=== PATIENT | male | born 1955 | race Caucasian/White ===

== ENCOUNTER → 2018-06-22 | Outpatient (CLI) | payer OTHER ==
--- NOTE | 2018-06-22 09:06 | MR ---
EXAMINATION TYPE: MR brain wo con DATE OF EXAM: 06/22/2018 COMPARISON: CT brain November 26, 2013 HISTORY: Essential tremor / Family hx brain tumor per order. Rt hand and leg shaking per patient. TECHNIQUE: Multiplanar, multisequence imaging of the brain and brainstem is performed without IV cont rast. FINDINGS: Diffusion weighted images demonstrate no evidence of a recent infarct or other diffusion abnormality. There is no worrisome extra-axial fluid collection. There is mild ventricular and sulcal prominence. There is occasional T2 hyperintense focus scattered throughout the white matter bilaterally. Roughly 5-10 scattered small lesions are seen. For reference there are 3-4 tiny left occipital lobe lesions n oted axial image 18. Focus of low intensity and blooming right temporal region axial image 11 on FLAI R sequence does not reproduce on T2-weighted images is felt Artifactual. Midline structures demonstrate normal morphology. The craniocervical junction appears within normal limits. Normal vascular flow voids are present. The visualized sinuses are clear and the globes are i ntact. IMPRESSION: Mild generalized atrophy and minimal nonspecific white matter changes presumed on the bas is of product of chronic small vessel ischemic change.
== END | disposition home or self-care (01) ==
LOC: RADMRIMAIN 08:11
PROVIDERS: ATTEND Psychiatry & Neurology Neurology
DX: G31.9 Degenerative disease of nervous system, unspecified (principal); R90.82 White matter disease, unspecified
CPT/HCPCS: 70551

== ENCOUNTER → 2018-10-01 | Outpatient (CLI) | payer OTHER ==
[2018-10-01 10:37] LABS: HGB 14.7 gm/dL (13.0-17.5); MCH 29.5 pg (25.0-35.0); MCHC 33.3 g/dL (31.0-37.0); MCV 88.6 fL (80.0-100.0); Mean Platelet Volume 6.9; Platelet Count 280 k/uL (150-450); RBC 4.97 m/uL (4.30-5.90); RDW 14.6 % (11.5-15.5); WBC 4.5 k/uL (3.8-10.6)
[2018-10-01 16:53] LABS: African American GFR (CKD) 117.2 (60.0-200.0); Albumin 4.4 g/dL (3.80-4.90); Albumin/Globulin Ratio 2.44 (1.60-3.17); Anion Gap 6.1 mmol/L (4.00-12.00); BUN/Creat Ratio 21.43 Ratio (12.00-20.00); Calcium 9.3 mg/dL (8.7-10.3); Carbon Dioxide 30.9 mmol/L (21.6-31.8); Globulin 1.8 g/dL (1.6-3.3); LDL Cholesterol,Calculated 100.8 mg/dL (0.0-131.0); Potassium 4.3 mmol/L (3.5-5.5); Total Bilirubin 1.5 mg/dL (0.2-1.2); Total Protein 6.2 g/dL (6.2-8.2); VLDL Calculation 20.2 mg/dL (5.00-40.00)
== END | disposition home or self-care (01) ==
LOC: LABWHC1 09:06
PROVIDERS: ATTEND Internal Medicine
DX: E87.8 Other disorders of electrolyte and fluid balance, not elsewhere classified (principal); E78.5 Hyperlipidemia, unspecified; D64.9 Anemia, unspecified; Z12.5 Encounter for screening for malignant neoplasm of prostate
CPT/HCPCS: 80061; 80053; 85027; 36415; G0103

== ENCOUNTER → 2022-01-10 | Outpatient (CLI) | payer OTHER ==
--- NOTE | 2022-01-10 15:45 | US ---
EXAMINATION TYPE: US carotid duplex BILAT DATE OF EXAM: 01/10/2022 COMPARISON: NONE CLINICAL HISTORY: [id number] CAROTID STENOSIS BILATERAL. Carotid stenosis per order. TECHNIQUE: Carotid duplex ultrasound examination. Indirect Doppler criteria was utilized. FINDINGS: EXAM MEASUREMENTS: RIGHT: Peak Systolic Velocity (PSV) cm/sec ----- Right CCA: 122.9 ----- Right ICA: 97.4 ----- Right ECA: 118.2 ICA/CCA ratio: 0.8 RIGHT: End Diastole cm/sec ----- Right CCA: 31.4 ----- Right ICA: 29.2 ----- Right ECA: 17.2 LEFT: Peak Systolic Velocity (PSV) cm/sec ----- Left CCA: 91.9 ----- Left ICA: 119.8 ----- Left ECA: 105.6 ICA/CCA ratio: 1.3 LEFT: End Diastole cm/sec ----- Left CCA: 25.9 ----- Left ICA: 43.5 ----- Left ECA: 18.9 VERTEBRALS (direction of flow): Right Vertebral: Antegrade Left Vertebral: Antegrade Rhythm: Normal DIRECTOR OF CONSERVATION NOTES: Elevated velocity within left prox CCA. Plaque seen within bilateral bulbs. IMPRESSION: Less than 50% stenosis of the bilateral carotid bifurcations. Criteria for Assigning % of Stenosis / Diameter reduction (Estimation based on the indirect measurements of the internal carotid artery velocities (ICA PSV). 1. Normal (no stenosis)=ICA PSV < 125 cm/s: ratio < 2.0: ICA EDV<40 cm/s. 2. Less than 50% stenosis=ICA PSV < 125 cm/s: ratio < 2.0: ICA EDV<40 cm/s. 3. 50 to 69% stenosis=ICA PSV of 125 to 230 cm/s: ration 2.0 ? 4.0: ICA EDV 40-100 cm/s. 4. Greater than 70% stenosis to near occlusion= ICA PSV > 230 cm/s: ratio > 4.0: ICA EDV > 100 cm/s. 5. Near occlusion= ICA PSV velocities may be low or undetectable: variable ratio and ICA EDV. 6. Total occlusion=unable to detect flow.
--- NOTE | 2022-01-11 09:54 | CA ---
Transthoracic Echo Report Name: Eladio Shelby Age: 66 Gender: M : 1955 Exam Date: 01/10/2022 14:22 Exam Location: [facility] Ht (in): 72 Wt (lb): 195 Ordering Physician: Jorge A River MD Attending/Referring Phys: Dogger Kamla Amor RDCS Procedure CPT: Indications: I65.23 OCCLUSION AND STENOSIS OF BILATERAL CAROTID Cardiac Hx: Technical Quality: Contrast 1: Total Dose (mL): Contrast 2: Total Dose (mL): MEASUREMENTS (Male / Female) Normal Values 2D ECHO LV Diastolic Diameter PLAX 5.2 cm 4.2 - 5.9 / 3.9 - 5.3 cm LV Systolic Diameter PLAX 3.7 cm IVS Diastolic Thickness 1.2 cm 0.6 - 1.0 / 0.6 - 0.9 cm LVPW Diastolic Thickness 1.3 cm 0.6 - 1.0 / 0.6 - 0.9 cm LV Relative Wall Thickness 0.5 RV Internal Dim ED PLAX 3.6 cm LVOT Diameter 2.3 cm LA Systolic Diameter LX 4.2 cm 3.0 - 4.0 / 2.7 - 3.8 cm LV Diastolic Volume MOD BP 96.2 cm??? 67 - 155 / 56 - 104 cm??? LV Systolic Volume MOD BP 20.7 cm??? 22 - 58 / 19 - 49 cm??? LV Ejection Fraction MOD BP 78.5 % >= 55 % LV Diastolic Volume MOD 4C 103.7 cm??? LV Systolic Volume MOD 4C 31.2 cm??? LV Ejection Fraction MOD 4C 69.9 % LV Diastolic Length 4C 8.8 cm LV Systolic Length 4C 6.8 cm LV Diastolic Volume MOD 2C 89.5 cm??? LV Systolic Volume MOD 2C 2.3 cm??? LV Ejection Fraction MOD 2C 97.4 % LV Diastolic Length 2C 8.8 cm LV Systolic Length 2C 0.8 cm LA Volume 74.0 cm??? 18 - 58 / 22 - 52 cm??? M-MODE Aortic Root Diameter MM 3.0 cm LA Systolic Diameter MM 4.5 cm LA Ao Ratio MM 1.5 MV E Point Septal Separation 0.5 cm AV Cusp Separation MM 1.9 cm DOPPLER AV Peak Velocity 137.0 cm/s AV Peak Gradient 7.5 mmHg AV Mean Velocity 80.6 cm/s AV Mean Gradient 3.3 mmHg AV Velocity Time Integral 20.8 cm LVOT Peak Velocity 91.1 cm/s LVOT Peak Gradient 3.3 mmHg AV Area Cont Eq pk 2.6 cm??? MV Peak Velocity 76.1 cm/s MV Peak Gradient 2.3 mmHg MV Mean Velocity 45.1 cm/s MV Mean Gradient 0.9 mmHg MV Velocity Time Integral 14.6 cm MV Area PHT 2.8 cm??? Mitral E Point Velocity 44.7 cm/s Mitral A Point Velocity 58.0 cm/s Mitral E to A Ratio 0.8 MV Deceleration Time 309.7 ms MV E' Velocity 6.9 cm/s Mitral E to MV E' Ratio 6.5 FINDINGS Left Ventricle Left ventricular ejection fraction is estimated at 50-55%. Mildly increased left ventricular wall thickness. Right Ventricle Normal right ventricular size and function. Right Atrium Normal right atrial size. Left Atrium Mildly increased left atrial diameter. Moderately increased left atrial volume. Mildly increased left atrial area. Mitral Valve Structurally normal mitral valve. Mild mitral regurgitation. Aortic Valve Trileaflet aortic valve. Tricuspid Valve Structurally normal tricuspid valve. Mild tricuspid regurgitation. Pulmonic Valve Structurally normal pulmonic valve. Pericardium Normal pericardium. Aorta Normal size aortic root and proximal ascending aorta. CONCLUSIONS Normal left ventricular dimension and systolic function Previewed by: Dr. Srini Aldridge MD (Electronically Signed) Final Date: 11 January 2022 09:54
== END | disposition home or self-care (01) ==
LOC: RADECHMAIN 14:16
PROVIDERS: ATTEND Internal Medicine
DX: I65.23 Occlusion and stenosis of bilateral carotid arteries (principal)
CPT/HCPCS: 93306; 93880

== ENCOUNTER → 2022-02-04 | Outpatient (CLI) | payer OTHER ==
--- NOTE | 2022-02-04 10:52 | NM ---
EXAMINATION TYPE: NM stress cardiolite complete DATE OF EXAM: 02/04/2022 COMPARISON: NONE HISTORY: I26.119 chest pain CAD TECHNIQUE: After the intravenous administration of 7.8 mCi Tc 99m Sestamibi - Rest images obtained 5 0 minutes post injection. The patient exercised using a OBED protocol and 1 minute prior to peak e xercise was injected with 25.3 mCi Tc 99m Sestamibi - Stress images obtained 10 minutes post injectio n. FINDINGS: Targeted heart rate was achieved during performance of the study. Fixed defect in the inferior septal wall mid to basal level which may be from artifact versus remote infarct. Gated analysis shows norm al wall motion with an estimated left ventricular ejection fraction of 60 %. IMPRESSION: 1. No scintigraphic evidence for reversible ischemia 2. Remote infarct versus artifact involving the inferior septal wall mid to basal level. The need to further investigate with direct catheter angiography should be based on degree of clinical suspicion EKG correlation.
--- NOTE | 2022-02-04 11:04 | CA ---
Exercise Stress Test Report Name: Eladio Shelby Exam Date: 02/04/2022 09:48 Exam Location: [facility] Ht (in): 73 Wt (lb): 192 BSA: 2.11 Ordering Phys: Jorge A River MD Referring Phys: Perico, Technologist: Michael Georges Age: 66 Gender: M : 1955 Procedure CPT: Indications: I26.119 chest pain CAD ICD-10 Codes: Patient History: Medications: SEE LIST Meds past 24 hrs: Pretest Chest Pain: STRESS TEST Balaji Protocol Exercise Duration (min:sec): 09:[address] Depressions (mm): Angina Score: Tyson Score: Resting HR (bpm): 75 Peak HR (bpm): 128 Resting BP (mmHg): 133 / 81 Peak BP (mmHg): 201 / 59 MPHR: 155 Target HR: 132 % MPHR: 83 METS: 10.3 Total Dose: Peak Dose: Atropine: Double Product: 51445 BP Response: Stress Termination: Fatigue,Chest Pain Stress Symptoms: CHEST PAIN,FATIGUE Stress Summary: ECG ANALYSIS Resting ECG: Stress ECG: CONCLUSIONS Patient underwent exercise stress EKG with a Balaji protocol treadmill stress test. Patient exercised into Stage 3 for a total of I minutes reaching a total of 10.3 METS. Patient's maximum heart rate was 127 which represented 81% age-predicted maximum heart rate. Test was terminated secondary to fatigue as well as some chest pain noted with exertion. Stress EKG findings: At baseline patient's EKG showed right bundle branch block without significant ST or T wave abnormalities. At peak exercise, EKG showed occasional PVCs, mild nondiagnostic 0.[address] depressions in V4 through V6. Conclusions: 1. Nondiagnostic stress EKG secondary to inability to reach 81% maximum predicted heart rate 2. Abnormal chest pain noted with exertion. Clinical correlation recommended 3. At 81% maximum predicted heart rate, no EKG evidence of ischemia Dr. Rojas White DO (Electronically Signed) Final Date: 04 February 2022 11:03
== END | disposition home or self-care (01) ==
LOC: RADNMMAIN 07:39
PROVIDERS: ATTEND Internal Medicine
DX: I25.119 Atherosclerotic heart disease of native coronary artery with unspecified angina pectoris (principal); R07.9 Chest pain, unspecified
CPT/HCPCS: 93017; 78452; A9500

== ENCOUNTER 2022-06-16 07:24 | Day surgery (SDC) | payer OTHER ==
[~2022-06-16 07:24] MED LIST: ALPRAZolam 0.25 MG TAB PO PRN; ALPRAZolam 0.5 MG TAB PO PRN; ASPIRIN 325 MG TAB PO ONE; ATORVASTATIN 80 MG TAB PO ONE; HEPARIN SODIUM,PORCINE 10,000 UNIT in SODIUM CHLORIDE 0.9% 1,000 ML IRRIGATION PRN; HEPARIN SODIUM,PORCINE 2,500 UNIT in SODIUM CHLORIDE 0.9% 250 ML IRRIGATION PRN; NITROGLYCERIN SL TABS 0.4 MG TAB SUBLINGUAL PRN; SODIUM CHLORIDE 0.9% 1,000 ML in EMPTY BAG 1 BAG IV SCH
[2022-06-16] MEDS ORDERED: SODIUM CHLORIDE 0.9% 1,000 ML IV ONE ×2 (07:30→08:34)
[2022-06-16 07:47] LABS: Basophils % (A) 1 %; Eosinophils # (A) 0.1 k/uL (0-0.7); Eosinophils % (A) 2 %; HGB 16.4 gm/dL (13.0-17.5); Lymphocytes % (A) 28 %; MCHC 34.9 g/dL (31.0-37.0); MCV 88.8 fL (80.0-100.0); Mean Platelet Volume 6.6; Monocytes # (A) 0.5 k/uL (0-1.0); Monocytes % (A) 7 %; Neutrophils # (A) 4.3 k/uL (1.3-7.7); Neutrophils % (A) 61 %; Platelet Count 252 k/uL (150-450); RBC 5.29 m/uL (4.30-5.90); RDW 13.1 % (11.5-15.5); WBC 7.1 k/uL (3.8-10.6)
[2022-06-16 07:58] LABS: African American GFR (CKD) >90 (>60 ml/min/1.73 sqM); Anion Gap 7 mmol/L; Blood Urea Nitrogen 14 mg/dL (9-20); Calcium 9.3 mg/dL (8.4-10.2); Carbon Dioxide 34 mmol/L (22-30); Chloride 101 mmol/L (98-107); Glucose 110 mg/dL (74-99); Non-African American GFR(CKD) >90 (>60 ml/min/1.73 sqM); Potassium 3.9 mmol/L (3.5-5.1); Sodium 142 mmol/L (137-145)
[2022-06-16] MEDS ORDERED: VERAPAMIL 2.5 MG/ML 2 ML AMP ONE (09:18)
[2022-06-16] MEDS ORDERED: fentaNYL (PF) 50 MCG/ML 2 ML AMP ONE (09:18)
[2022-06-16] MEDS: MIDAZOLAM 2 MG/2 ML VIAL IVP ONE ×2 (09:38→09:42)
[2022-06-16] MEDS ORDERED: fentaNYL (PF) 50 MCG/ML 2 ML AMP IVP ONE (09:38)
[2022-06-16] MEDS ORDERED: LIDOCAINE 1% INJ 10MG/ML (5 ML VIAL-PF) SQ ONE (09:42)
[2022-06-16] MEDS ORDERED: MIDAZOLAM 2 MG/2 ML VIAL IVP ONE (09:45)
[2022-06-16] MEDS: HEPARIN SODIUM 1,000 UN/ML (10ML VL) IVP ONE ×2 (09:47→09:57)
[2022-06-16] MEDS ORDERED: TICAGRELOR 90 MG TAB ONE (09:52)
[2022-06-16] MEDS ORDERED: TICAGRELOR 90 MG TAB PO ONE (09:53)
[2022-06-16] MEDS: NITROGLYCERIN 1000MCG/10ML SYRINGE INTRACORON ONE ×4 (10:00→10:24)
[2022-06-16] MEDS ORDERED: IOPAMIDOL-370 125ML BTL INJ ONE (10:15)
[2022-06-16] MEDS ORDERED: IOPAMIDOL-370 100ML BTL INJ ONE (10:30)
[2022-06-16] MEDS ORDERED: ATROPINE SULFATE 0.1 MG/ML 10ML SYRINGE IV PRN (10:57)
[2022-06-16] MEDS ORDERED: ZOLPIDEM 5 MG TAB PO PRN (10:57)
[2022-06-16] MEDS ORDERED: RX INFO: IV CONTRAST WAS GIVEN 1 EACH MISC MISCELLANE PRN (10:57)
[2022-06-16] MEDS ORDERED: MAG HYDROX/AL HYDROX/SIMETH 30 ML CUP PO PRN (10:57)
[2022-06-16] MEDS: CARBIDOPA-LEVODOPA 25-100 MG 1 EACH TAB PO SCH ×2 (17:16→20:43)
--- NOTE | 2022-06-16 18:43 | P.PRCINT ---
Percutaneous Coronary Int. - Percutaneous Coronary Intervention Percutaneous Coronary Intervention: PROCEDURES PERFORMED: Left heart catheterization, bilateral coronary angiography, PCI proximal LAD with 3.0 x 15mm Xience KELECHI, post dilated with a 3.5mm NC balloon, PCI distal circumflex with 2.5 x 15mm Xience KELECHI, post dilated with a 2.75 balloon INDICATION: Chest pain with exertion, concerning for unstable angina HISTORY: Patient is a pleasant 66-year-old male with family history of CAD who follows with Dr. Alarcon. He has been having chest pain worse with exertion improved with rest over the last 4-5 months however somewhat worsened in the last month despite antianginal medications, concerning for unstable angina. He had prior normal stress test however given continued symptoms recommendations for heart catheterization. CONSENT:I have discussed the risks, benefits and alternative therapies for the above-mentioned procedure and for both sedation/analgesia as well as necessary blood product administration, if indicated, as they pertain to this patient. The patient has indicated understanding and acceptance of the risks and procedures discussed. PROCEDURE: After the risks, benefits and alternatives of the above mentioned procedure explained in detail with the patient, informed consent was obtained. Patient was taken to the catheterization lab and prepped and draped in usual fashion. 1% lidocaine was used to anesthetize the right radial artery. A 6- Samoan sheath was placed in the right radial artery using modified Seldinger technique. Left coronary angiography was performed with a 5-Samoan JL 3.5 catheter and right coronary angiography was performed with a 5-Samoan JR5 catheter in various views. A 5-Samoan FR5 catheter was inserted into the left ventricle and pressure measurements were obtained. The decision was made to perform PCI of LAD. A 6-Samoan CLS 3.0 guide was used to engage the left main. A 0.014 BMW wire was advanced in the distal LAD. Predilatation was performed with a 2.75 x 12 mm balloon. Next a 3.0 x 15 mm Xience KELECHI was placed in the proximal LAD just proximal to the small caliber diagonal 1 branch. The proximal portion of the stent was post dilated with a 3.5mm NC balloon. Pre intervention there was a 90% proximal LAD stenosis with ARINA 3 flow and post intervention there was <10% stenosis with ARINA 3 flow. Next the BMW wire was advanced to the distal circumflex. Predilatation was performed with a 2.25 x 12 mm balloon. Next a 2.5 x 15 mm Xience KELECHI was advanced and deployed into the distal circumflex. The proximal portion of the stent was post dilated with a 2.75 balloon. Final angiograms were performed. Pre intervention there was 90% circumflex stenosis and post intervention there was < 10 % stenosis and ARINA 3 flow. The right radial sheath was removed and a TR band was placed with hemostasis achieved. The patient tolerated the procedure well. Patient was transported back to the post catheterization holding area in stable condition. Conscious Sedation: Patient was monitored under the direct supervision of vision of myself for conscious sedation using Versed and fentanyl for a total duration of 47 minutes HEMODYNAMICS: Ao: 144/76 LV: 143/5, LVEDP 17 SELECTIVE CORONARY ARTERIOGRAPHY: LEFT MAIN: The left main is a large caliber vessel which bifurcates into the LAD and circumflex. There is no significant stenosis. LEFT ANTERIOR DESCENDING CORONARY ARTERY: LAD is a large caliber vessel which wraps around to the apex. There is a proximal LAD 90% stenosis and otherwise mild luminal irregularities LEFT CIRCUMFLEX CORONARY ARTERY: Left circumflex is a moderate caliber vessel with distal circumflex 90% stenosis and otherwise mild luminal irregularities. RIGHT CORONARY ARTERY: The right coronary artery is a moderate caliber vessel which gives off a PDA and PLV branch and is the dominant vessel. There is a mid RCA 30% stenosis and otherwise mild luminal irregularities FINAL IMPRESSION: 1. CAD as described above with 90% proximal LAD, 90% distal circumflex and 30% RCA stenosis 2. S/p PCI proximal LAD with 3.0 x 15mm Xience KELECHI, post dilated with a 3.5mm NC balloon, PCI distal circumflex with 2.5 x 15mm Xience KELECHI, post dilated with a 2.75 balloon 3. Mildly elevated left sided pressures PLAN: 1. Aggressive risk factor modification per most recent ACC/AHA guidelines. 2. Continue dual antiplatelets with aspirin and Brillinta for 12 months.
[2022-06-16] MEDS: TICAGRELOR 90 MG TAB PO SCH (20:35)
[2022-06-17 03:44] VITALS: TEMP 98
[2022-06-17 06:35] LABS: Basophils % (A) 0 %; Eosinophils # (A) 0.1 k/uL (0-0.7); Eosinophils % (A) 1 %; HCT 41.6 % (39.0-53.0); HGB 14.3 gm/dL (13.0-17.5); Lymphocytes # (A) 1.9 k/uL (1.0-4.8); Lymphocytes % (A) 25 %; MCH 30.3 pg (25.0-35.0); MCHC 34.4 g/dL (31.0-37.0); MCV 88.2 fL (80.0-100.0); Mean Platelet Volume 6.8; Monocytes # (A) 0.5 k/uL (0-1.0); Monocytes % (A) 6 %; Neutrophils % (A) 65 %; Platelet Count 223 k/uL (150-450); RBC 4.71 m/uL (4.30-5.90); RDW 13.1 % (11.5-15.5); WBC 7.6 k/uL (3.8-10.6)
[2022-06-17 06:48] VITALS: BP 126/77; PULSE 68; RESP 16
[2022-06-17 07:03] LABS: Potassium 4.1 mmol/L (3.5-5.1)
[2022-06-17 07:04] LABS: African American GFR (CKD) >90 (>60 ml/min/1.73 sqM); Anion Gap 7 mmol/L; Blood Urea Nitrogen 12 mg/dL (9-20); Calcium 8.6 mg/dL (8.4-10.2); Carbon Dioxide 28 mmol/L (22-30); Chloride 104 mmol/L (98-107); Glucose 98 mg/dL (74-99); Non-African American GFR(CKD) >90 (>60 ml/min/1.73 sqM); Sodium 139 mmol/L (137-145)
[2022-06-17] MEDS ORDERED: LATANOPROST 0.005% OPHTH DROPS 2.5 ML BTL BOTH EYES SCH (09:00)
[2022-06-17] MEDS ORDERED: LORATADINE 10 MG TAB PO SCH (09:00)
[2022-06-17] MEDS ORDERED: MULTIVITAMINS, THERA 1 EACH TAB PO SCH (09:00)
[2022-06-17] MEDS ORDERED: MONTELUKAST 10 MG TAB PO SCH (09:00)
[2022-06-17] MEDS ORDERED: CALCIUM CARB-VIT D 500 MG-5 MCG TAB PO SCH (09:00)
[2022-06-17] MEDS ORDERED: METOPROLOL SUCCINATE (ER) 25 MG TAB.ER.24H PO SCH (09:00)
[2022-06-17] MEDS ORDERED: ATORVASTATIN 40 MG TAB PO SCH (09:00)
[2022-06-17] MEDS ORDERED: ASCORBIC ACID 500 MG TAB PO SCH (09:00)
[2022-06-17] MEDS ORDERED: ASPIRIN 81 MG PO SCH (09:00)
[2022-06-17] MEDS: TICAGRELOR 90 MG TAB PO SCH (09:15)
[2022-06-17] MEDS: CARBIDOPA-LEVODOPA 25-100 MG 1 EACH TAB PO SCH (09:16)
--- NOTE | 2022-06-17 09:19 | P.DS ---
Providers Attending physician: Rojas White DO Consults: 06/16/22 10:57 Consult Physician Routine Consulting Provider: [facility] Consult Reason/Comments: Post Interventional patient Do you want consulting provider notified?: Already Contacted Primary care physician: Jorge A River [facility] Course: Patient is a pleasant 66-year-old male who has been having chest pain worse with exertion or last few months. Symptoms have somewhat been worsening despite metoprolol and therefore recommended for angiography and possible stenting. He underwent left heart catheterization 06/16 with findings of 90% LAD and 90% circum flex stenosis. He underwent successful PCI however did have brief 20 minutes of chest pressure with ballooning which improved shortly after procedure. Today he has not been having any chest pain or pressure and has been feeling well. Plan - Discharge Summary Discharge Rx Participant: No New Discharge Prescriptions: New Ticagrelor [Brilinta] 90 mg PO BID #180 tab Continue Montelukast Sodium [Singulair] 10 mg PO DAILY Cetirizine HCl [Zyrtec] 10 mg PO DAILY Ascorbic Acid [Vitamin C] 500 mg PO DAILY Latanoprost/Pf [Latanoprost 0.005% Eye Drop] 1 drop BOTH EYES DAILY Calcium 500mg/Vitamin D3 ?Dose 1 tab PO Q48H Aspirin [Adult Low Dose Aspirin EC] 81 mg PO DAILY Carbidopa-Levodopa 25-100 mg [Sinemet 25-100 mg] 3 tab PO TID Atorvastatin [Lipitor] 40 mg PO DAILY Multivit-Min/FA/Lycopen/Lutein [Centrum Silver Tablet] 1 each PO DAILY Metoprolol Succinate [Metoprolol Succinate ER] 25 mg PO DAILY Discharge Medication List Ascorbic Acid [Vitamin C] 500 mg PO DAILY 11/26/13 [History] Cetirizine HCl [Zyrtec] 10 mg PO DAILY 11/26/13 [History] Montelukast Sodium [Singulair] 10 mg PO DAILY 11/26/13 [History] Aspirin [Adult Low Dose Aspirin EC] 81 mg PO DAILY 06/12/22 [History] Atorvastatin [Lipitor] 40 mg PO DAILY 06/12/22 [History] Calcium 500mg/Vitamin D3 ?Dose 1 tab PO Q48H 06/12/22 [History] Carbidopa-Levodopa 25-100 mg [Sinemet 25-100 mg] 3 tab PO TID 06/12/22 [History] Latanoprost/Pf [Latanoprost 0.005% Eye Drop] 1 drop BOTH EYES DAILY 06/12/22 [History] Multivit-Min/FA/Lycopen/Lutein [Centrum Silver Tablet] 1 each PO DAILY 06/12/22 [History] Metoprolol Succinate [Metoprolol Succinate ER] 25 mg PO DAILY 06/13/22 [History] Ticagrelor [Brilinta] 90 mg PO BID #180 tab 06/17/22 [Rx] Follow up Appointment(s)/Referral(s): Rojas White DO [STAFF PHYSICIAN] - 1 Week (APPOINTMENT MADE ON June @ 11:15AM WITH [facility]) Patient Instructions/Handouts: Moderate Sedation (DC), After Radial Heart Catheterization (GEN) Activity/Diet/Wound Care/Special Instructions: *NO LIFTING, PUSHING, OR PULLING ANYTHING OVER 5 POUNDS FOR 5 DAYS *NO DRIVING FOR 3 DAYS *YOU CAN REMOVE YOUR DRESSING AND SHOWER TOMORROW BUT DO NOT SUBMERSE YOUR PUNCTURE SITE IN WATER FOR A FEW DAYS TO PREVENT INFECTION - SO NO TUB BATHS, POOLS, HOT TUBS, DISHES...ETC *ANY SIGNS OF BLEEDING (HARDNESS, SWELLING, OR EXCESSIVE BRUISING) HOLD DIRECT PRESSURE ON YOUR PUNCTURE SITE AND COME TO THE NEAREST EMERGENCY ROOM TO GET YOUR PUNCTURE LOOKED AT - DO NOT DRIVE YOURSELF! EITHER CALL EMS OR HAVE SOMEONE DRIVE YOU!
[2022-06-17 11:00] VITALS: BMI 26.6
== END 2022-06-17 11:18 | disposition home or self-care (01) ==
LOC: CATHCVL 07:24 → 6NMEDSUR 10:29 → CATHCVL 06-17 11:18
PROVIDERS: ATTEND Internal Medicine
DX: I25.10 Atherosclerotic heart disease of native coronary artery without angina pectoris (principal); Z82.49 Family history of ischemic heart disease and other diseases of the circulatory system; Z79.02 Long term (current) use of antithrombotics/antiplatelets
CPT/HCPCS: 93458; 80048 ×2; 85025 ×2; C9600; C1769 ×2; C1887; C1894; C1725 ×3; C1874 ×2; J2250; J2001; J3010; J1644; Q9967 ×2

== ENCOUNTER → 2024-07-26 | Outpatient (CLI) | payer OTHER ==
--- NOTE | 2024-07-26 16:21 | XR ---
EXAMINATION TYPE: XR KUB DATE OF EXAM: 07/26/2024 4:06 PM COMPARISON: None CLINICAL INDICATION: Male, 69 years old with history of K59.01 SLOW TRANSIT CONSTIPATION; PHH, pain TECHNIQUE: One radiographic view of the abdomen was obtained. FINDINGS: Moderate head of the colon. Minimal mild on the left. Nonobstructive bowel gas pattern. Some scattere d vascular calcifications in the pelvis. IMPRESSION: Moderate stool in the right side of the abdomen and minimal to mild on the left. Nonobstructive bowel gas pattern. [facility], Workstation: [facility], 07/26/2024 4:19 PM
== END | disposition home or self-care (01) ==
LOC: RADXRMAIN 15:54
PROVIDERS: ATTEND Internal Medicine
DX: K59.01 Slow transit constipation (principal)
CPT/HCPCS: 74018

== ENCOUNTER → 2024-09-19 | Outpatient (CLI) | payer OTHER ==
[2024-09-19 16:11] LABS: African American GFR (CKD) >90 (>60 ml/min/1.73 sqM); Blood Urea Nitrogen 21 mg/dL (9-20); Non-African American GFR(CKD) >90 (>60 ml/min/1.73 sqM)
--- NOTE | 2024-09-19 18:59 | CT ---
EXAMINATION TYPE: CT abdomen pelvis w con DATE OF EXAM: 09/19/2024 5:36 PM COMPARISON: None CLINICAL INDICATION: Male, 69 years old with history of K59.01 SLOW TRANSIT CONSTIPATION; Constipatio n and bloating TECHNIQUE: Axial CT abdomen pelvis w con;Sagittal and coronal reformats were created on a separate w orkstation. Contrast used:100ml mL of Isovue 300 with IV Contrast, (none if empty) Oral contrast used: with Oral Contrast (none if empty) CT DLP: 1080 mGycm, Automated exposure control for dose reduction was used. FINDINGS: LOWER CHEST: Unremarkable ABDOMEN LIVER: Unremarkable GALLBLADDER AND BILE DUCTS: Unremarkable. PANCREAS: Unremarkable. SPLEEN: Unremarkable. ADRENAL GLANDS: Unremarkable. KIDNEYS AND URETERS: No evidence of hydronephrosis or obstructing renal calculus. The ureters are unr emarkable. Simple appearing left renal cortical cyst. No follow-up recommended PELVIS BLADDER: No evidence for wall thickening or mass given limitations of exam. REPRODUCTIVE: Prostate is enlarged in size measuring 5.2 cm in transverse dimension. ABDOMEN & PELVIS STOMACH AND BOWEL: [id number] sonograms of the colon. No evidence of bowel obstruction. PERITONEUM/RETROPERITONEUM: No evidence of pneumoperitoneum or free fluid. VASCULATURE: Mild atherosclerotic calcifications are present throughout the abdominal aorta and its b ranches. No evidence of aortic aneurysm. MUSCULOSKELETAL: No acute osseous abnormalities. Mild disc degeneration changes are present throughou t the thoracolumbar spine. LYMPH NODES: No gross evidence for lymphadenopathy. SOFT TISSUE/ABDOMINAL WALL: Fat-containing inguinal hernia on the right. Tiny fat-containing umbilica l hernia. IMPRESSION: 1. No evidence for acute abdominal process. This mild to moderate stool burden throughout the colon. 2. Prostatomegaly, correlate with serum PSA. [facility], , 09/19/2024 6:56 PM
== END | disposition home or self-care (01) ==
LOC: RADCTMAIN 15:35
PROVIDERS: ATTEND Internal Medicine
DX: N40.0 Benign prostatic hyperplasia without lower urinary tract symptoms (principal); K59.01 Slow transit constipation
CPT/HCPCS: 82565; 84520; 74177; 36415; Q9967